=== PATIENT | female | born 1950 | race African-American/Black ===

== ENCOUNTER → 2016-12-13 | Outpatient (CLI) | payer OTHER ==
[~2016-12-13] MED LIST: ADVAIR 100-501 EAC1 IH; ADVAIR 100-501 EACH IH; ADVAIR 250-501 EACH IH; ADVAIR 2501 DISK W/D; ADVAIR 2501 DISK W/D PO; ADVAIR 500-501 EACH IH; ADVAIR INH; ALBUTEROL17 GM; ALBUTEROL17 GM INH; ALLEGRA PO; ALLEGRA180 MG PO; ALPRAZOLAM; ALPRAZOLAM PO; AMBIEN; AMLODIPINE BESY10 MG PO; ASPIRIN; ASPIRIN PO; ASPIRIN325 M1 PO; ASPIRIN81 M1 PO; ASPIRIN81 M2 PO; AUGMENTIN PO; BACLOFEN10 MG PO; BAYER CHEWABLE81 MG PO; BUDESONIDE0.25 MG/2; BUDESONIDE0.25 MG/2 IH; CALCIUM + D 6001 TA1 PO; CALCIUM 600 +1 EAC3 PO; CELEBREX; CHLOR-TRIMETON4 MG PO; COMBIVENT MININEB INH; COMBIVENT U/D3 M1 INH; CRESTOR PO; DIFLUCAN PO; DUONEB 2.5-0.5 M3 ML; DUONEB 2.5-0.5 M3 ML NEB; EFFIENT10 MG PO; ENDOCET; ENDOCET 5-3251 EACH PO; FERRO-TIME325 MG PO; FIBER CHOI1 TAB.CHE1 PO; FIBER CHOICE CHE2 GM PO; FIBERCON625 MG PO; FLEXERIL PO; FLEXERIL10 M1 PO; FLEXERIL10 MG PO; FLONASE 0.05% N16 G1; FLONASE16 GM; FUROSEMIDE40 MG PO; GABAPENTIN400 MG PO; GABAPENTIN600 MG PO; GLIPIZIDE10 MG PO; GLUCOPHAGE500 M1 PO; GLUCOPHAGE500 MG PO; GLUCOTROL PO; HUMALOG100 U/M2 SQ; HUMALOG100 U/M2 SUBQ; HUMALOG100 U/ML SUBQ; HYDROCODON-ACE1 EAC1 PO; HYDROCODON-ACE1 EAC9 PO; INSULIN; IPRAT-ALBUT 0.5-3 ML IH; IPRATR-ALBUTEROL3 ML IH; IPRATROPIUM0.2 MG/ML NEB; IRON325 ( 652 PO; KCL; KCL PO; KLOR-CON PO; L-THYROXINE; LANTUS100 U/M1; LANTUS100 U/M1 SUBQ; LANTUS100 U/ML; LANTUS100 U/ML SUBQ; LASIX; LASIX PO; LEVAQUIN PO; LEVEMIR100 U/ML SQ; LEVEMIR100 U/ML SUBQ; LEVEMIR100 UNITS/ SUBQ; LEVOTHROID150 MCG PO; LEVOXYL125 MC1 PO; LISINOPRIL; LISINOPRIL PO; LISINOPRIL10 MG PO; LISINOPRIL5 MG PO; LOPID600 MG PO; LORATADINE PO; LORTAB 101 TAB 10/5 PO; LORTAB 7.5-5001 TAB PO; MACHINE; MEDROL4 MG/DOSE- PO; METFORMIN; METFORMIN HCL500 M1 PO; METFORMIN PO; MICRO-K10 MEQ PO; MIRALAX17 GM PO; MIRTAZAPINE45 M1 PO; MIRTAZAPINE45 MG PO; MONTELUKAST SOD10 MG PO; NASONEX17 GM; NEURONTIN; NEURONTIN PO; NEURONTIN600 MG PO; NEXIUM PO; NIFEDIPINE ER90 MG PO; NITROGYLCERIN; NITROGYLCERIN SUBLINGUAL; NITROQUICK0.4 MG SL; NITROSTAT0.4 MG SL; OCEAN NS; OXYCODON-ACETA1 EAC1 PO; OXYGEN; OYSCO; OYSTER CALCIUM500 MG; PANTOPRAZOLE SO40 MG PO; PERCOCET 5-3251 TAB PO; PERCOCET PO; PERCOCET5/325 PO; PERCOCET7.5 PO; PHENERGAN25 MG PO; PLAVIX PO; PREDNISONE PO; PREVACID; PREVACID PO; PRILOSEC PO; PRINIVIL5 MG PO; PROAIR HFA8.5 GM; PROAIR HFA8.5 GM IH; PROAIR INH; PROBIOTIC1 EACH PO; PROCARDIA XL PO; PROCARDIA10 MG; PROCARDIA90 MG/BOTT PO; PROMETHAZINE-D240 ML PO; PROTONIX PO; PULMICORT0.5 MG/2 M IH; REMERON PO; REMERON SOLTAB; REMERON45 MG PO; SINGULAIR; SINGULAIR PO; SYNTHROID PO; SYNTHROID175 MCG PO; TAMIFLU75 M1 PO; TYLOX1 CAP 5/50 PO; VERAMYST10 GM; WALGREEN'S PHARMACY; WELCHOL3.75 GM PO; WOMEN'S DAILY F1 TAB PO; WOMEN'S DAILY1 EAC2 PO; ZANAFLEX4 M1 PO; ZYRTEC; ZYRTEC PO; [UNRECOGNIZED DRUG - OTHER]; [UNRECOGNIZED DRUG - OTHER]; [UNRECOGNIZED DRUG - SUPPLY]
--- NOTE | ~2016-12-13 | BD1 ---
[facility] A Service of [facility] & [facility] RADIOLOGY TEXT RESULTS PATIENT: CARROLL INIGUEZ [facility] UNIT #: [id number] AGE: [address]: STEPHANIE GERARDO SEX: F ORDER DR: [id number] [facility] [address] [place], [place] [address] [id number] O MR#: [id number] #: [id number] NAME: CARROLL INIGUEZ : 1950 SEX: F STUDY DATE/TIME: 12/13/2016 13:58 [facility] ROOM: STUDY DESCRIPTION: BD Dexa Bone Dens 1+ Site Attending Physician: Stephanie Gerardo M.D. Referring Physician: Leonard Olivares M.D. Ordering Physician: Physician Non-Staff Primary Care Physician: Stephanie Gerardo M.D. MEDICAL IMAGING REPORT This report is preliminary unless electronic signature is present EXAM DXA scan, 12/13/2016. HISTORY Status post menopause with no hormone replacement therapy. Osteopenia. Hysterectomy at age 42 with removal of 1 ovary. Family history of breast carcinoma. Hyperthyroidism with thyroid medication. Arthritis. Diabetes. Hypertension with blood pressure medication. Smoking history for 20 years. FINDINGS Bone mineral density in the lumbar spine from L1-L4 is 0.97 g/cm2 which is 0.5 standard deviations below the mean when compared to the young adult reference population which is within the range of normal. This is 0.5 standard deviations above the mean when compared to the age-matched population. Compared with 07/15/2012, there has been a decrease in bone mineral density in the lumbar spine of 6%. Bone mineral density in the left hip was 0.708 g/cm2 which is 1.3 standard deviations below the mean when compared to the young adult reference population which is characteristic of osteopenia. This is 0.4 standard deviations below the mean when compared to the age-matched population. Compared with 07/15/2012, there has been a decrease in bone mineral density in the left hip of 7.5%. IMPRESSION Bone mineral density in the lumbar spine within the range of normal and within the left hip characteristic of osteopenia. Compared with 07/15/2012, there has been a decrease in bone mineral density in the lumbar spine and the left hip. [facility] A Service of [facility] RADIOLOGY TEXT RESULTS PATIENT: CARROLL INIGUEZ [facility] UNIT #: [id number] AGE: [address]: STEPHANIE GERARDO SEX: F ORDER DR: Dictated by... Adonis Blanton M.D. THIS IS AN ELECTRONICALLY VERIFIED REPORT Adonis Blanton M.D. at 12/14/2016 8:14 AM GAIL/sourav TD: 12/13/2016 16:00 JOB #: [id number] MEDICAL IMAGING REPORT Page 1 of 1 COPY
--- NOTE | ~2016-12-13 | MY11 ---
[facility] A Service of [facility] RADIOLOGY TEXT RESULTS PATIENT: CARROLL INIGUEZ LOCATION: [facility] : 51 UNIT #: [id number] AGE: [address]: STEPHANIE GERARDO SEX: F ORDER DR: [id number] [facility] [address] [place], [place] [address] [id number] O MR#: [id number] Acc #: [id number] NAME: CARROLL INIGUEZ : 1950 SEX: F STUDY DATE/TIME: 12/13/2016 14:08 UNIT: [facility] ROOM: STUDY DESCRIPTION: MY Mammogram Screening Dig Case Attending Physician: Stephanie Gerardo M.D. Referring Physician: Leonard Olivares M.D. Ordering Physician: Physician Non-Staff Primary Care Physician: Stephanie Gerardo M.D. MEDICAL IMAGING REPORT This report is preliminary unless electronic signature is present EXAM Digital screening mammogram, 12/13/2016, [facility]. HISTORY 66-year-old woman positive family history, aunt. Previous bilateral benign breast biopsies, 2 right breast, 1 left breast. COMPARISON Mammograms date to 08/28/2007 with most recent comparison 08/16/2015. TECHNIQUE Digital imaging of each breast was completed utilizing screening protocol. 2 scar markers were positioned on the right breast and a single scar marker placed on the left. Review includes FDA-approved CAD device. FINDINGS Breast parenchyma is predominantly fatty replaced bilaterally, slightly more prominent in the left breast. Postsurgical scar/deformity is apparent in each breast. This is most pronounced in the right breast. Occasional faint calcification noted bilaterally. These appears stable at this time. I see no suspicious mass and no suspicious microcalcifications. There is no interval occurring architectural disturbance. IMPRESSION Stable benign mammogram. Annual screening recommended. Patients over the age of 40 are entered into a reminder system with target due date for the next mammogram. A result letter will also be sent to the patient. BIRADS: 2 Benign finding. [facility] A Service of [facility] RADIOLOGY TEXT RESULTS PATIENT: CARROLL INIGUEZ LOCATION: [facility] : 51 UNIT #: [id number] AGE: [address]: STEPHANIE GERARDO SEX: F ORDER DR: Dictated by... Abiel Tomlin M.D. THIS IS AN ELECTRONICALLY VERIFIED REPORT Abiel Tomlin M.D. at 12/14/2016 8:18 AM SANTOS/sourav TD: 12/13/2016 15:57 JOB #: [id number] MEDICAL IMAGING REPORT Page 1 of 1 COPY
== END | disposition home or self-care (01) ==
LOC: CWCC 13:12
DX: Z13.820 Encounter for screening for osteoporosis (principal); Z12.31 Encounter for screening mammogram for malignant neoplasm of breast; M85.88 Other specified disorders of bone density and structure, other site; Z80.3 Family history of malignant neoplasm of breast; Z98.890 Other specified postprocedural states; Z88.5 Allergy status to narcotic agent; Z88.1 Allergy status to other antibiotic agents
CPT/HCPCS: 77080; G0202